=== PATIENT | male | born 1970 | race Caucasian/White ===

== ENCOUNTER 2020-06-22 12:13 | Inpatient (IN) | payer SELFPAY ==
[~2020-06-22] VITALS: Ht 167.6 cm; Wt 129.3 kg
[2020-06-22 12:54] LABS: BASOPHILS 0.1 % (0-2); EOSINOPHILS 0.3 % (0-7); HEMATOCRIT 46.1 % (42.0-54.0); HEMOGLOBIN 15.4 g/dL (13.5-17.5); IMMATURE GRANULOCYTES 0.3 % (0-5); LYMPHOCYTE ABS# 2.67 10x3/uL (1.32-3.57); LYMPHOCYTES 17.5 % (15-50); MCH 30.4 pg (26.0-34.0); MCHC 33.4 g/dL (31.0-37.0); MCV 91.1 fL (80.0-100.0); MEAN PLATELET VOLUME 10.1 fL (7.4-10.4); MONOCYTES 7.7 % (2-11); NEUTROPHIL ABS# 11.34 10x3/uL (1.78-5.38); NEUTROPHILS 74.1 % (40-80); PLATELET COUNT 191 10x3/uL (130-400); RBC 5.06 10x6/uL (4.20-6.10); RDW 12.7 % (11.5-14.5); WBC 15.3 10x3/uL (4.8-10.8)
--- NOTE | 2020-06-22 12:56 | NUR ---
URINE COLLECTED AND SENT TO LAB.
[2020-06-22 13:01] LABS: CALC OSMOLALITY 269 mosm/kg (275-300); CALCIUM 8.5 mg/dL (8.5-10.1); CHLORIDE - SERUM 101 mmol/L (98-107); GLUCOSE 123 mg/dL (74-106); POTASSIUM - SERUM 3.9 mmol/L (3.5-5.1); SODIUM 134 mmol/L (136-145); UREA NITROGEN 16 mg/dL (7-18); eGFR NON AFRICAN AMERICAN 84 mL/min (90-120)
[2020-06-22 13:07] LABS: ALBUMIN 3.2 g/dL (3.4-5.0); ALKALINE PHOSPHATASE 64 U/L (30-120); ALT (SGPT) 33 U/L (10-68); AMYLASE - SERUM 22 U/L (25-115); BILIRUBIN - TOTAL 1.12 mg/dL (0.2-1.3); LIPASE 54 U/L (73-393); PROTEIN - SERUM 7.6 g/dL (6.4-8.2)
[2020-06-22 13:20] LABS: APTT 27.5 SECONDS (22.8-39.4); INR 1.16 (0.85-1.17); PROTIME 13.7 SECONDS (11.6-15.0)
[2020-06-22 13:26] LABS: BILIRUBIN NEGATIVE (NEGATIVE); KETONE NEGATIVE (NEGATIVE); NITRITE NEGATIVE (NEGATIVE); PH 6.5 (5.0-8.0)
[2020-06-22 13:27] LABS: BACTERIA FEW HPF (NONE SEEN); SQUAMOUS EPITHELIAL 0-5 HPF (0-4); WHITE CELLS - URINE 0-5 HPF (0-1)
[2020-06-22 13:47] LABS: CKMB 1.5 U/L (0.0-3.6); CREATINE KINASE 146 UL (21-232)
[2020-06-22 14:06] LABS: TROPONIN-I < 0.017 ng/mL (0.000-0.060)
--- NOTE | 2020-06-22 16:10 | NUR ---
REPORT CALLED. ROOM NOT CLEAN.
--- NOTE | 2020-06-22 18:00 | NUR ---
ROOM CLEANED, AWAITING PT
--- NOTE | 2020-06-22 18:43 | NUR ---
ARRIVES TO UNIT PER W/C, ALERT AND O, C/O ABD PAIN AT 6, NO EMESIS OR NAUSEA, IV PER R HAND, VITALS ON CHART
[2020-06-22 18:44] VITALS: BP 153/82
--- NOTE | 2020-06-22 18:47 | NUR ---
DENIES ANY HOME MEDS
--- NOTE | 2020-06-22 20:00 | NUR ---
UP AD JENNIFER IN ROOM. RESP UNLABORED. CL IN REACH
[2020-06-22 22:06] VITALS: BP 113/76
[2020-06-22 23:29] VITALS: BMI 46.1
[2020-06-23 07:00] LABS: BASOPHILS 0.1 % (0-2); EOSINOPHILS 0.1 % (0-7); HEMATOCRIT 43.1 % (42.0-54.0); IMMATURE GRANULOCYTES 0.4 % (0-5); LYMPHOCYTE ABS# 2.13 10x3/uL (1.32-3.57); LYMPHOCYTES 15.4 % (15-50); MCH 29.9 pg (26.0-34.0); MCHC 32.5 g/dL (31.0-37.0); MCV 91.9 fL (80.0-100.0); MEAN PLATELET VOLUME 10.5 fL (7.4-10.4); MONOCYTES 9.3 % (2-11); NEUTROPHIL ABS# 10.32 10x3/uL (1.78-5.38); NEUTROPHILS 74.7 % (40-80); PLATELET COUNT 192 10x3/uL (130-400); RBC 4.69 10x6/uL (4.20-6.10); RDW 12.9 % (11.5-14.5); WBC 13.8 10x3/uL (4.8-10.8)
[2020-06-23 07:27] LABS: ALBUMIN 2.9 g/dL (3.4-5.0); ALKALINE PHOSPHATASE 56 U/L (30-120); ALT (SGPT) 29 U/L (10-68); BILIRUBIN - TOTAL 1.05 mg/dL (0.2-1.3); CALC OSMOLALITY 273 mosm/kg (275-300); CALCIUM 8.4 mg/dL (8.5-10.1); CARBON DIOXIDE 24.5 mmol/L (21.0-32.0); CHLORIDE - SERUM 102 mmol/L (98-107); GLUCOSE 121 mg/dL (74-106); MAGNESIUM - SERUM 1.9 mg/dL (1.8-2.4); POTASSIUM - SERUM 3.3 mmol/L (3.5-5.1); PROTEIN - SERUM 7.1 g/dL (6.4-8.2); SODIUM 136 mmol/L (136-145); UREA NITROGEN 16 mg/dL (7-18); eGFR NON AFRICAN AMERICAN 84 mL/min (90-120)
[2020-06-23 08:13] VITALS: BP 133/91
--- NOTE | 2020-06-23 08:56 | NUR ---
RESTING ON LEFT SIDE WITHOUT SIGNS OF DISTRESS.
[2020-06-23 12:44] VITALS: BP 146/86
[2020-06-23 14:13] VITALS: Ht 167.6 cm; Wt 129.3 kg
[2020-06-23 17:06] VITALS: BP 149/88
[2020-06-24] VITALS: BP 146/91
[2020-06-24 04:00] VITALS: BP 146/84
[2020-06-24 06:04] LABS: ALBUMIN 2.7 g/dL (3.4-5.0); ALKALINE PHOSPHATASE 51 U/L (30-120); ALT (SGPT) 29 U/L (10-68); BILIRUBIN - TOTAL 0.55 mg/dL (0.2-1.3); CALC OSMOLALITY 273 mosm/kg (275-300); CALCIUM 8.3 mg/dL (8.5-10.1); CHLORIDE - SERUM 102 mmol/L (98-107); GLUCOSE 128 mg/dL (74-106); MAGNESIUM - SERUM 2.1 mg/dL (1.8-2.4); PHOSPHOROUS 2.7 mg/dL (2.5-4.9); POTASSIUM - SERUM 3.5 mmol/L (3.5-5.1); PROTEIN - SERUM 7.1 g/dL (6.4-8.2); SODIUM 136 mmol/L (136-145); UREA NITROGEN 13 mg/dL (7-18); eGFR NON AFRICAN AMERICAN 84 mL/min (90-120)
[2020-06-24 06:20] LABS: BASOPHILS 0.1 % (0-2); EOSINOPHILS 0.5 % (0-7); HEMATOCRIT 42.6 % (42.0-54.0); HEMOGLOBIN 13.9 g/dL (13.5-17.5); IMMATURE GRANULOCYTES 0.5 % (0-5); LYMPHOCYTE ABS# 1.69 10x3/uL (1.32-3.57); LYMPHOCYTES 15.8 % (15-50); MCH 29.9 pg (26.0-34.0); MCHC 32.6 g/dL (31.0-37.0); MCV 91.6 fL (80.0-100.0); MEAN PLATELET VOLUME 10.6 fL (7.4-10.4); MONOCYTES 8.8 % (2-11); NEUTROPHIL ABS# 7.93 10x3/uL (1.78-5.38); NEUTROPHILS 74.3 % (40-80); PLATELET COUNT 173 10x3/uL (130-400); RBC 4.65 10x6/uL (4.20-6.10); RDW 12.6 % (11.5-14.5); WBC 10.7 10x3/uL (4.8-10.8)
--- NOTE | 2020-06-24 07:19 | NUR ---
SLEEPING WITHOUT SIGNS OF DISTRESS.
--- NOTE | 2020-06-24 07:59 | NUR ---
I have reviewed this patient and I concur with the Shift Assessment completed by the Licensed Practical Nurse today this shift.
--- NOTE | 2020-06-24 08:00 | NUR ---
I have reviewed this patient and I concur with the Shift Assessment completed by the Licensed Practical Nurse today this shift.
[2020-06-24 14:00] VITALS: BP 146/94
[2020-06-24 17:29] VITALS: BP 145/85
[2020-06-24 20:00] VITALS: BP 150/87
--- NOTE | 2020-06-24 23:32 | NUR ---
REC'D. WALKING ROUNDS CHGE OF SHIFT.IN BED WATCHING TV.ABDOMEN OBESE FIRM BUT PALABLE.DENIES TENDERNESS ON PALPATION,NAUSEA OR VOMITTING AT PRESENT TIME.WILL CONTINUE TO MONITOR FOR ANY CHGES AND FOLLOW CURRENT PLAN OF CARE.
[2020-06-25] VITALS: BP 146/72
--- NOTE | 2020-06-25 02:41 | NUR ---
I have reviewed this patient and I concur with the Shift Assessment completed by the Licensed Practical Nurse today this shift.
[2020-06-25 04:00] VITALS: BP 155/90
[2020-06-25 07:11] LABS: BASOPHILS 0.2 % (0-2); EOSINOPHILS 1.1 % (0-7); HEMATOCRIT 42.8 % (42.0-54.0); IMMATURE GRANULOCYTES 0.5 % (0-5); LYMPHOCYTE ABS# 1.85 10x3/uL (1.32-3.57); LYMPHOCYTES 21.7 % (15-50); MCHC 32.7 g/dL (31.0-37.0); MCV 91.8 fL (80.0-100.0); MEAN PLATELET VOLUME 11.3 fL (7.4-10.4); NEUTROPHIL ABS# 5.74 10x3/uL (1.78-5.38); NEUTROPHILS 67.5 % (40-80); PLATELET COUNT 192 10x3/uL (130-400); RBC 4.66 10x6/uL (4.20-6.10); RDW 12.7 % (11.5-14.5); WBC 8.5 10x3/uL (4.8-10.8)
[2020-06-25 07:36] LABS: ALBUMIN 2.6 g/dL (3.4-5.0); ALKALINE PHOSPHATASE 51 U/L (30-120); ALT (SGPT) 30 U/L (10-68); CALC OSMOLALITY 277 mosm/kg (275-300); CALCIUM 8.6 mg/dL (8.5-10.1); CARBON DIOXIDE 26.9 mmol/L (21.0-32.0); CHLORIDE - SERUM 105 mmol/L (98-107); CREATININE - SERUM 0.9 mg/dL (0.6-1.3); GLUCOSE 118 mg/dL (74-106); MAGNESIUM - SERUM 2.1 mg/dL (1.8-2.4); PHOSPHOROUS 3.2 mg/dL (2.5-4.9); POTASSIUM - SERUM 3.5 mmol/L (3.5-5.1); SODIUM 139 mmol/L (136-145); UREA NITROGEN 11 mg/dL (7-18); eGFR NON AFRICAN AMERICAN > 90 mL/min (90-120)
--- NOTE | 2020-06-25 07:48 | NUR ---
RESTING IN BED WITH EYES OPEN, ALERT AND ORIENTED. IV LOCATED TO RIGHT HAND CURRENTLY RUNNING NS @ 75ML. NO CURRENT S/S OF DISTRESS, DENIES NEEDS AT THIS TIME, WILL CONT TO MONITOR.
[2020-06-25 08:47] VITALS: BP 170/99
[2020-06-25] MEDS ORDERED: LEVAQUIN750 MG PO (11:09)
[2020-06-25] MEDS ORDERED: FLAGYL500 MG PO (11:09)
[2020-06-25] MEDS ORDERED: MIRALAX17 GM PO (11:09)
[2020-06-25] MEDS ORDERED: HYDROCODON-ACE1 EAC7 PO (11:09)
[2020-06-25] MEDS ORDERED: ZOFRAN4 MG PO (11:10)
[2020-06-25 12:25] VITALS: BP 173/105
--- NOTE | 2020-06-25 14:19 | NUR ---
PT D/C`D VIA WHEELCHAIR AND HOSPITAL STAFF, NO CONCERNS.
--- NOTE | 2020-06-25 14:56 | MORECARE ---
CASE MANAGEMENT DISCHARGE SUMMARY PATIENT: CT BLAND UNIT: [id number] ADM DATE: 06/22/20 AGE: 50 : 68 SEX: M ROOM/BED: D.2210 AUTHOR: HALEY,DOC PHYSICIAN: REFERRING PHYSICIAN: CALEB VALDEZ MD DATE OF SERVICE: 06/25/20 Case Management Discharge Planning Summary COMMENTS ENTERED DATE: 06/25/20 14:41 CT COMMENT TYPE: Discharge Planning REVIEWER: Leslye Morales PATIENT IS DISCHARGING HOME TODAY, ELIF SCHUSTER RN SPOKE WITH PATIENT ABOUT HIS COST OF HIS MEDICATION AND TO SEE IF HE NEEDED HELP WITH IT. THE COST WOULD BE UNDER 100.00 AND HE STATED THAT HE COULD AFFORD THAT AND THAT HE HAS A GOOD RX CARD AND THAT WILL CUT THE COST DOWN MORE. HE WAS THANKFUL THAT HE WAS ASKED ABOUT HIS MEDICATIONS. CM DID NOT GET TO VISIT WITH PATIENT PRIOR TO HIM LEAVING [facility] REVIEW SUMMARY ANTICIPATED D/C DATE: EXPECTED LOS : CASE STATUS: DCP Initiated INITIAL REVIEW: 06/22/2020 INITIAL REVIEWER: Leslye Morales FINAL DISCHARGE DISPOSITION: : FINAL REVIEWER: FINAL REVIEW DATE: [facility] Focus Questions & Answers QUESTION: ANSWER : PATIENT: CT BLAND ENCOUNTER: [id number] MEDICAL RECORD#: [id number] ADMISSION DATE: 06/22/2020 DISCHARGE DATE: 06/25/2020 ATTENDING MD: CALEB CAREY : AGE: 50 MARITAL STATUS: S DC PLAN ID: [id number] FACILITY: [facility] PRINTED ON: 06/25/20 14:56 CT All edits/amendments must be made on the electronic document DICTATION DATE: 06/25/201455 FOUNTAIN ROLLER ASSEMBLER: DM 06/25/20 145 RPT#: [id number] DC DATE:06/25/20 STATUS: DIS IN [place] [id number] [place] [address] END OF REPORT
--- NOTE | 2020-06-26 09:13 | MORECARE ---
CASE MANAGEMENT DISCHARGE SUMMARY PATIENT: CT BLAND UNIT: [id number] ADM DATE: 06/22/20 AGE: 50 : 68 SEX: M ROOM/BED: D.2210 AUTHOR: HALEY,DOC PHYSICIAN: REFERRING PHYSICIAN: CALEB VALDEZ MD DATE OF SERVICE: 06/26/20 Case Management Discharge Planning Summary COMMENTS ENTERED DATE: 06/25/20 14:41 CT COMMENT TYPE: Discharge Planning REVIEWER: Leslye Morales PATIENT IS DISCHARGING HOME TODAY, ELIF SCHUSTER RN SPOKE WITH PATIENT ABOUT HIS COST OF HIS MEDICATION AND TO SEE IF HE NEEDED HELP WITH IT. THE COST WOULD BE UNDER 100.00 AND HE STATED THAT HE COULD AFFORD THAT AND THAT HE HAS A GOOD RX CARD AND THAT WILL CUT THE COST DOWN MORE. HE WAS THANKFUL THAT HE WAS ASKED ABOUT HIS MEDICATIONS. CM DID NOT GET TO VISIT WITH PATIENT PRIOR TO HIM LEAVING [facility] REVIEW SUMMARY ANTICIPATED D/C DATE: EXPECTED LOS : 0 CASE STATUS: DCP Complete INITIAL REVIEW: 06/22/2020 INITIAL REVIEWER: Leslye Morales FINAL DISCHARGE DISPOSITION: 01 : Home or Self Care (Routine Discharge) FINAL REVIEWER: Leslye Morales FINAL REVIEW DATE: 06/26/2020 DCP [employer] Questions [employer] Answers QUESTION: ANSWER : PATIENT: CT BLAND ENCOUNTER: [id number] MEDICAL RECORD#: [id number] ADMISSION DATE: 06/22/2020 DISCHARGE DATE: 06/25/2020 ATTENDING MD: CALEB CAREY : AGE: 50 MARITAL STATUS: S DC PLAN ID: [id number] FACILITY: [facility] PRINTED ON: 06/26/20 9:13 CT All edits/amendments must be made on the electronic document DICTATION DATE: 06/26/20912 MATERIAL PREPARATION WORKER: JOANNE 06/26/20912 RPT#: [id number] DC DATE:06/25/20 STATUS: DIS IN [facility] [address] [place] [address] END OF REPORT
== END 2020-06-25 14:20 | disposition home or self-care (01) | DRG 392 ==
LOC: D.ER 12:13 → D.MS 15:18
PROVIDERS: Family Medicine; ADMIT Emergency Medicine; ATTEND Emergency Medicine
DX: K57.20 Diverticulitis of large intestine with perforation and abscess without bleeding (principal); E87.1 Hypo-osmolality and hyponatremia; N39.0 Urinary tract infection, site not specified; Z68.42 Body mass index [BMI] 45.0-49.9, adult; N30.90 Cystitis, unspecified without hematuria; D72.829 Elevated white blood cell count, unspecified; E66.01 Morbid (severe) obesity due to excess calories